=== PATIENT | male | born 1990 | race Caucasian/White ===

== ENCOUNTER 2020-08-13 04:38 | Emergency (ER) | payer MEDICAID, OTHER ==
[~2020-08-13] VITALS: Ht 170.2 cm; Wt 97.0 kg
[2020-08-13] MEDS ORDERED: METHOCARBAMOL 750 MG TABLET ONE (05:00)
[2020-08-13] MEDS ORDERED: METHOCARBAMOL 750 MG TABLET PO ONE (05:00)
[2020-08-13] MEDS ORDERED: KETOROLAC 30 MG/1 ML IM ONE (05:00)
[2020-08-13] MEDS ORDERED: KETOROLAC 30 MG/1 ML ONE (05:01)
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
--- NOTE | 2020-08-13 05:38 | NUR ---
PT GIVEN SPRITE, OK PER ERP
[2020-08-13 06:45] VITALS: BP 101/55
--- NOTE | 2020-08-13 06:48 | NUR ---
PT VERBALIZED UNDERSTANDING OF DISCHARGE INSTRUCTIONS. AMBULATED FROM ED W/O COMPLICATION
== END 2020-08-13 06:49 | disposition home or self-care (01) ==
LOC: ED 05:47
DX: S39.012A Strain of muscle, fascia and tendon of lower back, initial encounter (principal); X58.XXXA Exposure to other specified factors, initial encounter; Y93.89 Activity, other specified; Y92.89 Other specified places as the place of occurrence of the external cause; Y99.8 Other external cause status
CPT/HCPCS: 72110; 96372; 99283; J1885

== ENCOUNTER 2021-04-24 18:41 | Emergency (ER) | payer MEDICAID ==
[~2021-04-24] VITALS: Ht 172.7 cm; Wt 95.2 kg
[2021-04-24 18:44] VITALS: BP 144/90
[2021-04-24] MEDS ORDERED: LIDOCAINE-MPF 1%, 2ML ONE (19:38)
[2021-04-24] MEDS ORDERED: LIDOCAINE 1%-EPI 1:100K, 20ML ONE (19:40)
[2021-04-24] MEDS ORDERED: DIPH,PERTUSS(ACELL),TET VAC/PF 0.5 ML IM-VACC ONE ×2 (19:40→20:00)
[2021-04-24] MEDS ORDERED: LIDOCAINE 1%-EPI 1:100K, 20ML SQ ONE (20:00)
== END 2021-04-24 20:36 | disposition home or self-care (01) ==
LOC: ED 18:45
DX: S01.01XA Laceration without foreign body of scalp, initial encounter (principal); F17.210 Nicotine dependence, cigarettes, uncomplicated; X58.XXXA Exposure to other specified factors, initial encounter; Y93.89 Activity, other specified; Y92.89 Other specified places as the place of occurrence of the external cause; Y99.8 Other external cause status
CPT/HCPCS: 12002; 90471; 90715; 99283

== ENCOUNTER 2021-05-03 10:35 | Emergency (ER) | payer MEDICAID ==
[~2021-05-03] VITALS: Ht 172.7 cm; Wt 96.3 kg
[2021-05-03 10:57] VITALS: BP 133/79
--- NOTE | 2021-05-03 15:39 | NUR ---
NA X 1
--- NOTE | 2021-05-03 16:00 | NUR ---
NA X 2
--- NOTE | 2021-05-03 16:40 | NUR ---
NIL X3
== END 2021-05-03 16:41 | disposition left against medical advice (07) ==
LOC: ED 10:44
DX: R51.9 Headache, unspecified (principal); R42 Dizziness and giddiness; R94.31 Abnormal electrocardiogram [ECG] [EKG]; Z53.21 Procedure and treatment not carried out due to patient leaving prior to being seen by health care provider
CPT/HCPCS: 93005

== ENCOUNTER 2021-05-03 17:04 | Emergency (ER) | payer MEDICAID ==
[~2021-05-03] VITALS: Ht 172.7 cm; Wt 97.0 kg
[2021-05-03 19:49] VITALS: BP 127/74
[2021-05-03] MEDS ORDERED: ACETAMINOPHEN 500 MG TABLET ONE (19:59)
[2021-05-03] MEDS ORDERED: ACETAMINOPHEN 500 MG TABLET PO ONE (20:00)
== END 2021-05-03 20:39 | disposition home or self-care (01) ==
LOC: ED 17:30
DX: S09.8XXA Other specified injuries of head, initial encounter (principal); F07.81 Postconcussional syndrome; X58.XXXA Exposure to other specified factors, initial encounter; Y93.89 Activity, other specified; Y92.89 Other specified places as the place of occurrence of the external cause; Y99.8 Other external cause status
CPT/HCPCS: 70450; 99284